=== PATIENT | male | born 1960 | race Caucasian/White ===

== ENCOUNTER 2019-04-13 08:05 | Emergency (ER) | payer OTHER ==
--- NOTE | 2019-04-13 08:06 | ED Physician Documentation ---
General Adult - HISTORIAN Historian: patient - HPI Stated Complaint: RLQ abdominal pain x 3 days started on left Chief Complaint: Abdominal Pain Onset: days ago (3) Timing: still present Severity: moderate (/10) Further Comments: yes (He states three days ago he started with Left sided abdominal pain and nausea and vomiting. He now states the pain is on the right side lower with increasing pain with nausea. No injury. No fever. Normal BM this am. No pain with urination no frequency no blood in urine. He has tried Pepto and had no relief.) - ROS CONST: no problems GI/: abdominal pain, vomiting, nausea MS/SKIN/LYMPH: denies: rash NEURO/PSYCH: denies: headache - PAST HX Past History: none Immunizations: UTD Allergies/Adverse Reactions: Allergies Allergy/AdvReac Type Severity Reaction Status Date / Time No Known Allergies Allergy Verified 04/13/19 08:43 Home Medications: Ambulatory Orders Medication Instructions Recorded NK 04/13/19 - SOCIAL HX Smoking History: non-smoker Alcohol Use: none Drug Use: none - FAMILY HX Family History: No - REVIEWED ASSESSMENTS Nursing Assessment Reviewed: Yes Vitals Reviewed: Yes Progress - Progress Progress: 0908: pain is slightly improved although nausea is better DG 0930: pain is improved walked from CT per his request DG 1012: Discussed results with pt - he is refusing to stay or be transferred. He has had a extensive discussion about the dx and the outcome he is currently facing possible from rupture appendix - he is saying he will sign out AMA -- after discussion with the nurse he is going to call and discuss with his and let us know if he will be transferred or not. DG 1027: Discussed transfer with Trini at [facility] - she states they are on a bed hold. Chalo from [facility] will discuss case with surgeon and return call DG 1037: Dr Rodriguez accepting [facility] General Adult Physical Exam - PHYSICAL EXAM GENERAL APPEARANCE: no distress EENT: eye inspection normal, no signs of dehydration NECK: normal inspection RESPIRATORY: no resp distress, chest non-tender, breath sounds normal CVS: reg rate & rhythm, heart sounds normal ABDOMEN: soft, normal bowel sounds, tenderness (RUQ and RLQ with palpation . No rebound ), guarding. No: McBurney's point tenderne, rebound BACK: normal inspection, no CVA tenderness SKIN: warm/dry EXTREMITIES: non-tender NEURO: oriented X3 Discharge Clincal Impression: Appendicitis Qualifiers: Appendicitis type: acute appendicitis Acute appendicitis type: unspecified acute appendicitis type Qualified Code(s): K35.80 - Unspecified acute appendicitis Referrals: Primary Doctor,No [Primary Care Provider] - 2 Days Comments: [facility] transfer Condition: Fair Disposition: 02 XFER [facility]HT-TRM HOSP Decision to Admit: NO Date of Decison to Admit: 04/13/19 Decision Time: 10:28
[2019-04-13] MEDS: 0.9 % SODIUM CHLORIDE 1,000 ML IV ONE (08:38)
[2019-04-13] MEDS: ONDANSETRON HCL/PF 4 MG/ 2ML VIAL IVP ONE (08:39)
[2019-04-13] MEDS: KETOROLAC TROMETHAMINE 30 MG/1ML VIAL IV ONE (08:40)
[2019-04-13 08:42] LABS: BASOPHILS % 0.5 % (0.0-1.5); NEUTROPHILS # 9.8 # k/uL (1.4-7.7)
[2019-04-13 08:57] LABS: eGFR (Non-African) > 60
--- NOTE | 2019-04-13 10:09 | Diagnostic Imaging Report ---
PATIENT MR#: [id number] PATIENT PATIENT NAME: ALISHA CHAPA DATE OF : 1960 REFERRING PHYSICIAN: Lupe Edmondson EXAM DATE: 04/13/2019 ACCESSION NUMBER: [id number] EXAM DESCRIPTION: CT ABD PELVIS W/ CON CT abdomen and pelvis with contrast Date of study: time : 04/13/2019 9:31:40 AM User : Xochilt Marieomis RLQ PAIN X 3 DAYS (DICOM Hx) (DICOM Hx) TECHNIQUE: 5 mm contiguous axial images of the abdomen and pelvis with IV contrast. With; 90 ML [id number] FINDINGS: Abdomen: The liver, pancreas and spleen are normal in appearance. The gallbladder is unremarkable. Th e kidneys enhance appropriately and symmetrically. The aorta is normal in caliber. The small bowel is nondistended. The re is no evidence of free air. The appendix is inflamed. No abscess. Pelvis: The colon is normal in appearance. The distal ureters and bladder are normal. There is no papi dence of free fluid. The sigmoid colon and rectum are normal. The remaining pelvic structures are within normal ferrera its and the bones of the pelvis are intact. IMPRESSION: Acute appendicitis Discussed with Dr. Edmondson 1005 AM 04-13-2019 Read by: Dr. Del Davis Transcribed by: Transcribed Date: Electronically signed by: Dr. Del Davis Date signed: 04/13/2019 10:09:17 AM
[2019-04-13 12:06] LABS: APPEARANCE,URINE CLEAR (CLEAR); COLOR,URINE YELLOW (YELLOW); OCCULT BLOOD,URINE TRACE (NEGATIVE); PH URINE 7.5 (5.0 - 8.0); UROBILINOGEN URINE 0.2 Eu (0.2-1.0)
[2019-04-13 12:43] VITALS: BP 131/69
== END 2019-04-13 11:06 | disposition short-term general hospital (02) ==
LOC: ED 08:05 → EDSTATUS 08:21 → ED 11:06
DX: K35.80 Unspecified acute appendicitis (principal)
CPT/HCPCS: 74177; 80053; 81002; 85025; 96361; 96374; 96375; 99283; 99284; J1885; J2405; J7030; Q9967; S1016